=== PATIENT | female | born 1940 | race Caucasian/White ===

== ENCOUNTER 2020-04-23 07:24 | Inpatient (IN) | payer MEDICARE, MEDICAID, SELFPAY ==
[2020-04-23] VITALS (19 sets, daily range): BP systolic 138–215; BP diastolic 61–92; PULSE 63–84; RESP 11–20; TEMP 36.2–37; O2SAT 90–100; BMI 28.3
--- NOTE | 2020-04-23 | XR_ITS ---
WS: [id number] C-ARM RADIOGRAPHS LEFT HIP; 71 IMAGES HISTORY: OR PICS COMPARISON: Study earlier the same day. Intraoperative imaging during fixation of LEFT hip fracture with intramedullary rodding. Gamma neck s crew also placed. XR/XR hip LT 1V wo/w pel [id number] IMPRESSION: Intraoperative imaging during fixation LEFT hip fracture.
--- NOTE | 2020-04-23 | SCC_ITS ---
Procedure Done: Open reduction and internal fixation left hip with intramedullary device 57.3 seconds of fluoroscopic guidance, for a cumulative dose of 6.93 mGy, was provided to Dr. Garcia by the radiology department. C-arm images of the LEFT hip were saved for the patient's permanent record. [facility] SYSTEM[facility]ian[facility]
--- NOTE | 2020-04-23 07:46 | XR_ITS ---
WS: [id number] LEFT HIP HISTORY: fall / pain COMPARISON: None available. LEFT hip: There is an acute impacted fracture extending through the intertrochanteric region of the L EFT hip. Avulsion of the lesser trochanter. No significant anterior posterior displacement. Soft tiss ue bleeding and injury surrounding the hip fracture and osteopenia. XR/XR hip LT 2-3V wo/w pel* [id number] IMPRESSION: 1. Acute comminuted, impacted LEFT intertrochanteric hip fracture. 2. Osteopenia. 3. Avulsion of the lesser trochanter.
--- NOTE | 2020-04-23 08:04 | ED_ITS ---
HPI - Fall General: Chief Complaint: Fall Stated Complaint: FALL, LEFT HIP PAIN Time Seen by Provider: 04/23/20 07:25 History of Present Illness: HPI Narrative: 79-year-old female brought in by EMS after falling at home. She had several falls recently. EMS came out to the house to help her up she is partial weightbearing on the left hip. Pain is primarily in the left hip. She denies any other injuries she fell. She has had several falls recently she just feels she gets weak about an hour after she takes her medications. She denies any chest pain respiratory she has no recent GI or issues. States she does not really get dizzy when this happened just get weak and fall. complaint: fall Onset (ago): minute(s) Fall from: standing Fall witnessed: yes, by family Place fall occurred: home Loss of consciousness: None Prolonged down time: no Symptoms prior to fall: lightheadedness Context: history of frequent falls Severity: mild Associated symptoms-after fall: Reports no associated symptoms; Denies abdominal pain or chest pain Review of Systems Const: Denies: fever(s), chills, body aches, change in appetite, fatigue or malaise ENMT: Denies: throat pain, ear or mastoid pain, nasal discharge or nasal congestion Card: Denies: chest pain, edema, dyspnea on exertion or orthopnea Resp: Denies: dyspnea, productive cough or non-productive cough GI: Denies: abdominal pain, nausea, vomiting, hematemesis, coffee ground emesis, diarrhea, constipation, bloating, hematochezia or melena : Denies: flank pain, difficulty voiding, dysuria, urinary frequency or urinary urgency Skin/Breast: Denies: rash or pruritus PFSH ED PFSH: Medical History (Updated 04/23/20 @ 13:49 by Mauricio Contreras DO) Diabetes mellitus DJD (degenerative joint disease) Hyperlipidemia Hypertension Surgical History (Updated 04/23/20 @ 10:46 by Bentley Garcias MD) History of cataract surgery History of cholecystectomy Family History (Updated 04/23/20 @ 10:46 by Bentley Garcias MD) Other CAD (coronary artery disease) Social History (Updated 04/23/20 @ 10:47 by Bentley Garcias MD) Smoking and tobacco status: never smoked Alcohol intake: never Substance/Drug Use: never Physical Exam Const: COMMON NORMALS: no acute distress GENERAL APPEARANCE: cooperative and comfortable ORIENTATION/CONSCIOUSNESS: Yes awake, Yes oriented to person, Yes oriented to place and Yes oriented to time HENMT: COMMON NORMALS: normocephalic, atraumatic, hearing grossly normal bilaterally, external ears normal, EAC's normal, TM's normal bilaterally, Normal nasal mucous membranes and turbinates present, moist oral mucous membranes and oropharynx normal HEAD & SCALP: normocephalic and atraumatic NOSE: Normal nasal mucous membranes and turbinates present EXTERNAL EAR: Yes external ears normal EXTERNAL AUDITORY CANAL: EAC's normal TYMPANIC MEMBRANE: TM's n ormal bilaterally Eye: COMMON NORMALS: Equal, round and reactive pupils present, EOMs intact bilaterally, conjunctivae normal and no scleral icterus CONJUNCTIVA: Yes conjunctivae normal PUPIL: Yes Equal, round and reactive pupils present Neck/C-Spine: COMMON NORMALS: full ROM, no lymphadenopathy, supple and no JVD Lymph: LYMPHATIC: no lymphadenopathy noted and no lymphedema noted Resp: COMMON NORMALS: normal respiratory effort, No retractions, No use of accessory muscles and clear to auscultation bilaterally AUSCULTATION: clear to auscultation bilaterally Cardio: COMMON NORMALS: no JVD, regular rate, regular rhythm and No murmurs present (Cardio) RATE: regular rate RHYTHM: regular rhythm GI: COMMON NORMALS: Soft to palpation and No hepatosplenomegaly present AUSCULTATION: Yes normoactive bowel sounds PALPATION: Yes Soft to palpation, No Tenderness to palpation present (GI), No Guarding due to palpation present (GI) and Yes No hepatosplenomegaly present Extremity: COMMON NORMALS: normal to inspection, capillary refill normal, no clubbing, cyanosis or edema, no calf tenderness and no pedal edema Neuro: SENSORIUM/ORIENTATION: Yes oriented to person, Yes oriented to place and Yes oriented to time Skin: COMMON NORMALS: no rashes or lesions noted GENERAL SKIN EXAM: no rashes or lesions noted Course Vital Signs: Vital signs: Vital Signs Temperature 97.5 F L 04/23/20 07:24 Pulse Rate 70 04/23/20 10:37 Respiratory Rate 15 04/23/20 10:37 Blood Pressure 144/85 04/23/20 10:37 Pulse Oximetry 99 04/23/20 10:37 MDM - Fall MDM Narrative: Medical decision making narrative: Discussed with Dr. Garcia and Dr. Mendoza will admit for the hip fracture Dr. Mendoza to admit Dr. Garcia to consult. Lab Data: Labs: Lab Results 04/23/20 04/23/20 04/23/20 Range/Units 08:15 08:15 08:35 WBC 19.8 H (4.0-10.0) 10^3/ uL RBC 3.83 L (4.1-5.3) 10^6/u L Hgb 11.5 (11.5-15.3) g/dL Hct 36.7 L (37.0-47.0) % MCV 95.8 (81-99) fL MCH 30.0 (28.0-34.0) pg MCHC 31.3 (30.0-36.0) g/dL RDW 12.3 (12.1-15.1) % Plt Count 314 (130-400) 10^3/c mm MPV 9.0 (7.4-10.4) fL Neut % (Auto) 82.7 % Lymph % (Auto) 10.9 % [place] % (Auto) 4.6 % Eos % (Auto) 1.0 % Baso % (Auto) 0.4 % Neut # (Auto) 16.4 H (1.8-7.7) 10^3/u L Lymph # (Auto) 2.2 (0.8-4.8) 10^3/u L [place] # (Auto) 0.9 (0.2-0.9) 10^3/u L Eos # (Auto) 0.2 (0.0-0.8) 10^3/u L Baso # (Auto) 0.1 (0.0-0.1) 10^3/u L Nucleated RBC % (a uto) 0 % Nucleated RBCs # 0.0 /100WBC Sodium 139 (136-145) mmol/L Potassium 5.1 (3.5-5.1) mmol/L Chloride 106 (98-107) mmol/L Carbon Dioxide 22 (22-29) mmol/L Anion Gap 16.1 (5-19) BUN 28 H (8-23) mg/dL Creatinine 1.5 H (0.5-0.9) mg/dL Glucose 117 H (65-115) mg/dL Calculated Osmolal ity 286 (285-295) mOsm/k g Calcium 9.1 (8.5-10.5) mg/dL Total Bilirubin 0.3 (0.15-1.2) mg/dL AST 20 (0-32) U/L ALT 10 (0-33) U/L Alkaline Phosphata se 86 (35-105) IU/L Total Protein 6.9 (6.6-8.7) g/dL Albumin 3.6 (3.5-5.2) g/dL Globulin 3.3 (1.3-4.6) g/dL TSH 6.71 H (0.27-4.20) uIU/ mL Urine Color Yellow (Yellow) Urine Appearance Cloudy (CLEAR) Urine pH 6 (5-7) Ur Specific Gravit y 1.015 (1.005-1.030) Urine Protein Neg (Negative) Urine Glucose (UA) Norm (Normal) Urine Ketones Negative (Negative) Urine Blood 2+ H (Negative) Urine Nitrate Negative (Negative) Urine Bilirubin Neg (NEGATIVE) Urine Urobilinogen Norm (Negative) mg/dL Ur Leukocyte Thalia ase Negative (Negative) Urine RBC 5-10 H (0-2) /hpf Urine WBC 15-25 H (0-5) /hpf Ur Squamous Epith Cells None (0-5) Amorphous Sediment 2+ Urine Bacteria 2+ H (NONE) Discharge Plan Discharge Patient Disposition: Admitted As Inpatient Admit Provider: Bentley Garcias Clinical Impression: Hip fracture, Diabetes mellitus, UTI (urinary tract infection), Acute kidney injury, Fall, Hypertension Condition: Stable Interventions: ED Discharge Assessment Last Done: 04/23/20 10:37 ED Charges Last Done: 04/23/20 10:37 Discharge Date/Time: 04/23/20 10:38 Coding Level of Care Code ED Service Promoter Salesperson for Rong Fwd Exam Comprehensive
[2020-04-23 08:24] LABS: Basophils # 0.1 10^3/uL (0.0-0.1); Basophils % 0.4 %; Eosinophils # 0.2 10^3/uL (0.0-0.8); Hematocrit 36.7 % (37.0-47.0); Hemoglobin 11.5 g/dL (11.5-15.3); Lymphocytes # 2.2 10^3/uL (0.8-4.8); Lymphocytes % 10.9 %; Mean Corpuscular HGB Conc 31.3 g/dL (30.0-36.0); Mean Corpuscular Volume 95.8 fL (81-99); Monocytes # 0.9 10^3/uL (0.2-0.9); Monocytes % 4.6 %; Neutrophils # 16.4 10^3/uL (1.8-7.7); Neutrophils % 82.7 %; Nucleated Red Blood Cells % 0 %; Platelet Count 314 10^3/cmm (130-400); Red Blood Count 3.83 10^6/uL (4.1-5.3); Red Cell Distribution Width 12.3 % (12.1-15.1); White Blood Count 19.8 10^3/uL (4.0-10.0)
[2020-04-23 08:49] LABS: Alanine Aminotransferase 10 U/L (0-33); Albumin Level 3.6 g/dL (3.5-5.2); Alkaline Phosphatase 86 IU/L (35-105); Anion Gap 16.1 (5-19); Blood Urea Nitrogen 28 mg/dL (8-23); Calcium 9.1 mg/dL (8.5-10.5); Carbon Dioxide 22 mmol/L (22-29); Chloride 106 mmol/L (98-107); Globulin 3.3 g/dL (1.3-4.6); Glucose 117 mg/dL (65-115); Osmolality Calculated 286 mOsm/kg (285-295); Potassium 5.1 mmol/L (3.5-5.1); Sodium 139 mmol/L (136-145); Total Bilirubin 0.3 mg/dL (0.15-1.2); Total Protein 6.9 g/dL (6.6-8.7)
[2020-04-23 09:11] LABS: Aspartate Amino Transferase 20 U/L (0-32)
[2020-04-23 09:23] LABS: Add Urine Microscopic? YES; Bilirubin Urine Neg (NEGATIVE); Blood Urine 2+ (Negative); Glucose Urine UA Norm (Normal); Ketones Urine Negative (Negative); Leukocyte Esterase Urine Negative (Negative); Nitrate Urine Negative (Negative); Protein Urine Neg (Negative); Specific Gravity, Urine 1.015 (1.005-1.030); Urine Appearance Cloudy (CLEAR); Urine Color Yellow (Yellow); Urobilinogen Urine Norm (Negative); pH Urine 6 (5-7)
[2020-04-23 09:29] LABS: Add Urine Culture? Yes; Amorphous Sediment Urine 2+; Bacteria Urine 2+; WBC Urine 15-25 /hpf (0-5)
--- NOTE | 2020-04-23 09:31 | XR_ITS ---
WS: [id number] PORTABLE CHEST HISTORY: dyspnea/cough COMPARISON: None available. Lungs are clear and well expanded. No pleural effusion or pneumothorax. Cardiac size: Mildly enlarged cardiac silhouette. Mediastinum/Aorta: Mild atherosclerosis aorta. Osteopenia. XR/XR chest 1V portable [id number] IMPRESSION: Mild cardiomegaly and partially calcified aorta.
[2020-04-23] MEDS: ondansetron 2 mg/ML SDV 2 mL 4 MG IVP (09:54)
[2020-04-23] MEDS: cefTRIAXone 1,000 MG in sodium chloride 0.9% (plus) 50 ML 100 MG IV ×2 (09:54→22:20)
[2020-04-23] MEDS: morphine 4 mg/mL SDV 1 mL IVP (09:54)
--- NOTE | 2020-04-23 10:42 | P.HP_ITS ---
Providers/Chief Complaint Admitting Physician: Bentley Garcias MD Chief Complaint: FALL, LEFT HIP PAIN History of Present Illness Dorinda Mendoza is a 79 year old female who reports she has been falling quite a bit lately. She fell on her left hip, and came in with pain. She reports she does not pass out. She is not for sure why she falls but believes it is secondary to her severely poor site. She really does not have any dizziness. She did think she had some intermittent fevers lately. She has had some nausea after taking her medicines in the morning. No vomiting, cough, runny nose, exposure to COVID, chest discomfort. Denies any head injury or neck pain. Attempted to call patient's family for further history, but no answer. Patient sleepy during interview presumably secondary to pain medication. Review of Systems General: Reports: 10 or more systems reviewed and unremarkable except in HPI and below Const: Reports: fever(s), chills and malaise Eyes: Denies: change in vision ENMT: Denies: throat pain Card: Denies: chest pain Resp: Denies: dyspnea GI: Denies: abdominal pain : Denies: flank pain Musc: Denies: neck pain Skin/Breast: Denies: rash Neuro: Denies: headache(s) Psych: Denies: anxiety Endo: Denies: polyuria Matt/Lymph: Denies: easy bruising All/Imm: Denies: urticaria Medications/Allergies Home Medications Medication Instructions Recorded Confirmed Last Taken Type glimepiride 4 mg PO DAILY 04/23/20 04/23/20 04/22/20 History lisinopril-hydrochlorothiazide 1 tab PO DAILY 04/23/20 04/23/20 04/22/20 History naproxen 500 mg PO DAILY PRN 04/23/20 04/23/20 Unknown History pravastatin 40 mg PO DAILY 04/23/20 04/23/20 04/22/20 History tramadol 50 mg PO DAILY PRN 04/23/20 04/23/20 04/22/20 History Allergies Allergy/AdvReac Type Severity Reaction Status Date / Time No Known Allergies Allergy Unverified 04/23/20 09:46 PFSH Acute PFSH: Medical History (Updated 04/23/20 @ 10:52 by Bentley Garcias MD) Diabetes mellitus DJD (degenerative joint disease) Hyperlipidemia Hypertension Surgical History (Updated 04/23/20 @ 10:46 by Bentley Garcias MD) History of cataract surgery History of cholecystectomy Family History (Updated 04/23/20 @ 10:46 by Bentley Garcias MD) Other CAD (coronary artery disease) Social History (Updated 04/23/20 @ 10:47 by Bentley Garcias MD) Smoking and tobacco status: never smoked Alcohol intake: never Substance/Drug Use: never Vitals/I&O/Wt Last Vital Signs Temp 97.5 F L 04/23/20 07:24 Pulse 70 04/23/20 10:37 Resp 15 04/23/20 10:37 BP 144/85 04/23/20 10:37 Pulse Ox 99 04/23/20 10:37 Weight last 48 hrs Weight 72.699 kg Physical Exam Narrative: EXAM NARRATIVE: General exam is no apparent distress, conversant HEENT: Pupils equally round. Left eye with esotropia which the patient reports is chronic. Oropharynx clear. Neck is supple no lymphadenopathy or thyromegaly Cardiovascular regular rate and rhythm without murmur, no S3 or S4 Lungs clear no wheezing or crackles Abdomen is soft with positive bowel sounds. No obvious organomegaly was deferred Extremities no cyanosis clubbing or edema, cap refill brisk Skin no rash Neuro no obvious focal deficits Urinary Catheter Management^: Vasquez: Cath Placed During This Visit: no Reason for Continuing Indwelling Catheter: Other Data : 04/23/20 08:15 04/23/20 08:15 Other data: LFTs normal. Urine demonstrates 15-25 white blood cells consistent with UTI. Chest x-ray demonstrates cardiomegaly, no infiltrate Hip x-rays demonstrate left intertrochanteric fracture EKG has been ordered and is pending. A&P Assessment and plan (1) Hip fracture: N.p.o. Pain control Orthopedic consultation Status: Acute (2) Fall: Etiology unknown. Patient attributes this to poor vision. Telemetry Status: Acute (3) Acute kidney injury: Hydration Hold lisinopril and hydrochlorothiazide Status: Acute (4) UTI (urinary tract infection): Ceftriaxone IV Await urine culture Status: Acute (5) Hypertension: Initiate Norvasc Hydralazine PRN Status: Acute Additional A&P Information Diabetes mellitus type 2. Sliding scale insulin DJD Full code SCDs for DVT prophylaxis Anticoagulation with Lovenox or heparin following surgery Covid 19 testing has been ordered by the ER. Appropriate precautions to be taken until results known. Attestations Medical Necessity Statement*: Will need greater than 2 midnight stay for treatment of hip fracture Time Spent in Patient Care: Greater than 35 minutes Coding Level of Care Code Acute Orthopedic Physician Assistant for Chg Fwd Diagnoses Hip fracture S72.009A Fall W19.XXXA Acute kidney injury N17.9 UTI (urinary tract infection) N39.0 Hypertension I10
[2020-04-23 12:36] LABS: Thyroid Stimulating Hormone 6.71 uIU/mL (0.27-4.20)
[2020-04-23] MEDS: sodium chloride 0.9% 1,000 ML 75 ML IV (13:46)
--- NOTE | 2020-04-23 14:33 | PM.CONSULT ---
Providers/Reason For Consult Consulting Physican/Specialty*: Jamal Garcia MD/orthopedics Reason for Consult*: Left intertrochanteric hip fracture Attending Physician: Bentley Garcias MD History of Present Illness History of Present Illness Dorinda Mendoza is a 79 year old female who resides at home with her . She describes generalized weakness in her lower extremities and quite a few recent falls. She alleges today that her legs felt weak and gave out but neither. She fell on her left side with immediate pain. She denies any dizziness palpitations or loss of consciousness. She states she usually walks with a walker with a seat but rarely sits. He was transferred here by EMS for radiographs of revealed a left intratrochanteric hip fracture Review of Systems Const: Reports: fever(s), chills and malaise Card: Denies: chest pain, palpitations or dyspnea on exertion GI: Denies: abdominal pain, nausea or vomiting : Denies: flank pain Neuro: Reports: weakness in extremities; Denies: numbness in extremities Meds/Allergies Home Medications and Allergies Home Medications Medication Instructions Recorded Confirmed Last Taken Type glimepiride 4 mg PO DAILY 04/23/20 04/23/20 04/22/20 History lisinopril-hydrochlorothiazide 1 tab PO DAILY 04/23/20 04/23/20 04/22/20 History naproxen 500 mg PO DAILY PRN 04/23/20 04/23/20 Unknown History pravastatin 40 mg PO DAILY 04/23/20 04/23/20 04/22/20 History tramadol 50 mg PO DAILY PRN 04/23/20 04/23/20 04/22/20 History Allergies Allergy/AdvReac Type Severity Reaction Status Date / Time No Known Allergies Allergy Unverified 04/23/20 09:46 Current Medications Current Medications Generic Name Dose Route Start Last Admin Trade Name Freq PRN Reason Stop Dose Admin Sodium Chloride 1,000 mls @ 75 mls/hr 04/23/20 11:41 04/23/20 13:46 Sodium Chloride 0.9% IV 75 mls/hr .[id number] JAYASHREE Administration PFSH Acute PFSH: Medical History (Updated 04/23/20 @ 14:38 by Jamal Garcia MD) Diabetes mellitus DJD (degenerative joint disease) Hyperlipidemia Hypertension Surgical History (Updated 04/23/20 @ 10:46 by Bentley Garcias MD) History of cataract surgery History of cholecystectomy Family History (Updated 04/23/20 @ 10:46 by Bentley Garcias MD) Other CAD (coronary artery disease) Social History (Updated 04/23/20 @ 10:47 by Bentley Garcias MD) Smoking and tobacco status: never smoked Alcohol intake: never Substance/Drug Use: never Vitals/I&O/Wt Last Vital Signs Temp 97.5 F L 04/23/20 07:24 Pulse 70 04/23/20 14:02 Resp 15 04/23/20 10:37 BP 144/85 04/23/20 10:37 Pulse Ox 96 04/23/20 14:02 Weight last 48 hrs Weight 160 lb 4.383 oz Physical Exam Narrative: EXAM NARRATIVE: Patient is a elderly female supine in bed. She is oriented to person place and time. She answers questions appropriately. HEAD: Normocephalic/atraumatic. NECK: Soft supple nontender. HEART: Normal heart sounds, regular rhythm. CHEST: Clear to auscultation. ABDOMEN: Soft nontender nondistended. The patient's left lower extremity is not shortened externally rotated position. She has exquisite pain with motion the left hip. She has a palpable left dorsalis pedis pulse. Will flex extend her toes and her ankle without any motor deficits. Urinary Catheter Management^: Vasquez: Cath Placed During This Visit: no Reason for Continuing Indwelling Catheter: Other Data Micro: Micro: Microbiology 04/23/20 12:12 Blood Culture - Pr eliminary Blood SPECIMEN [facility] Imaging^: Xray Ortho: My impression: Radiographs the left hip are obtained. The patient has a left intratrochanteric hip fracture with release of free lesser trochanteric fragment. She has apparent osteopenia consistent with age. A&P Assessment and plan (1) Intertrochanteric fracture of left hip: I discussed options with the patient and her daughter. I told the patient we could treat this nonoperatively but certainly they would be at risk for medical problems without surgery. Theywould have problems with pain that would require narcotics for pain control. They would require a long period of bedrest sandwich peddler risk for pneumonia and skin breakdown. I discussed surgical intervention with the patient. I told them with open reduction internal fixation they should be able to be mobilized and resume ambulatory status. We can eliminate the problems associated with prolonged bed rest and would have better control of pain. Certainly there would be inherent risk with surgery. These would would include the risk of cardiac complications, stroke, infection, and even . I discussed risk of any orthopedic implant including nonunion, malunion, a component failure. I discussed the possible need for component removal. I discussed risk of deep venous thromboses and pulmonary emboli that are present with any treatment and the importance of DVT prophylaxis. The patient expressed good understanding of alternative treatments, seem to comprehend, and agrees to surgical intervention. Status: Acute Coding Level of Care Code Acute Party Plan Sales Director for Robbie Arriola Diagnoses Intertrochanteric fracture of left hip S72.142A
--- NOTE | 2020-04-23 16:01 | PC.NURSE ---
pt was taken to the or for surgery.
--- NOTE | 2020-04-23 16:09 | P.ANESASSM_ITS ---
Pre-Anesthetic Assessment Pre-Anesthetic Assessment: Height/Weight: Height 1.6 m Weight 72.699 kg Temp Pulse Resp BP Pulse Ox 97.5 F L 70 15 144/85 96 04/23/20 07:24 04/23/20 14:02 04/23/20 10:37 04/23/20 10:37 04/23/20 14:02 Preop Diagnosis: Left intertrochanteric hip fracture Proposed Procedure: Operation Date: 04/23/20 16:40 Proposed Procedures p Trochanteric Femoral Nail(Left) - Jamal Garcia MD Social: Social History: No alcohol and No tobacco Exam: Pre-Anes Outpt Exam: alert, oriented x 3, clear to auscultation bilaterally and regular rate & rhythm Airway: Submandibular: WNL Cervical ROM: WNL MP: 3 Dentition: Other ( very poor dentation, ) History/ROS: No significant history except as noted Pulmonary: Pulmonary: HERBERT CV/HEM: CV/HEM: HTN : : Chronic renal Insufficiency Hepatic: Hepatic: None reported GI: GI: None reported Metabolic: Metabolic: DM and Hyperlipidemia Musc/skel: Musc/skel: OA/DJD Neuropsych: Neuropsych: None reported Anesthetic Plan: ASA status: 3 Anesthesia: Anesthesia Evaluation and General Risk of > 500 ml blood loss (7ml/kg in children): No Meds/Allergies Current Medications: Current Medications Generic Name Dose Route Start Last Admin Trade Name Freq PRN Reason Stop Dose Admin Sodium Chloride 1,000 mls @ 75 ml s/hr 04/23/20 11:41 04/23/20 13:46 Sodium Chloride 0.9% IV 75 mls/hr .[id number] JAYASHREE Administration PFSH Anesthesia PFSH: Medical History Diabetes mellitus DJD (degenerative joint disease) Hyperlipidemia Hypertension Surgical History History of cataract surgery History of cholecystectomy Family History Other CAD (coronary artery disease) Social History Smoking and tobacco status: never smoked Alcohol intake: never Substance/Drug Use: never Data Anesthesia CBC & Chem 7: 04/23/20 08:15 04/23/20 08:15 Other Labs: Laboratory Results - last 48 hr 04/23/20 04/23/20 04/23/20 08:15 08:15 08:35 WBC 19.8 H RBC 3.83 L Hgb 11.5 Hct 36.7 L MCV 95.8 MCH 30.0 MCHC 31.3 RDW 12.3 Plt Count 314 MPV 9.0 Neut % (Auto) 82.7 Lymph % (Auto) 10.9 [place] % (Auto) 4.6 Eos % (Auto) 1.0 Baso % (Auto) 0.4 Neut # (Auto) 16.4 H Lymph # (Auto) 2.2 [place] # (Auto) 0.9 Eos # (Auto) 0.2 Baso # (Auto) 0.1 Nucleated RBC % (auto) 0 Nucleated RBCs # 0.0 Sodium 139 Potassium 5.1 Chloride 106 Carbon Dioxide 22 Anion Gap 16.1 BUN 28 H Creatinine 1.5 H Glucose 117 H Calculated Osmolality 286 Calcium 9.1 Total Bilirubin 0.3 AST 20 ALT 10 Alkaline Phosphatase 86 Total Protein 6.9 Albumin 3.6 Globulin 3.3 TSH 6.71 H Urine Color Yellow Urine Appearance Cloudy Urine pH 6 Ur Specific [place] 1.015 Urine Protein Neg Urine Glucose (UA) Norm Urine Ketones Negative Urine Blood 2+ H Urine Nitrate Negative Urine Bilirubin Neg Urine Urobilinogen Norm Ur Leukocyte Esterase Negative Urine RBC 5-10 H Urine WBC 15-25 H Ur Squamous Epith Cells None Amorphous Sediment 2+ Urine Bacteria 2+ H Micro: Microbiology 04/23/20 12:12 Blood Culture - Preliminary Blood SPECIMEN COLLECTED Cardiac Studies: No Data to Display
[2020-04-23] MEDS: fentaNYL 50 mcg/mL INJ 2mL IVP ×2 (16:52→19:46)
[2020-04-23 16:59] LABS: Glucose Point of Care 82 mg/dL (70-110)
[2020-04-23] MEDS: sodium chloride 0.9% 1,000 ML 30 ML IV (18:00)
[2020-04-23] MEDS: labetalol 5 mg/mL SDV 20mL IVP (19:35)
--- NOTE | 2020-04-23 19:44 | SUR.PHASEI ---
1931 PATIENT TO PACU. DRAINAGE CIRCLED ON LEFT HIP DRESSING, LEFT PEDAL PULSE, STRONG AND MARKED. PATIENT RESTING COMFORTABLE ON BED. SPO2 100% ON SIMPLE MASK AT 8L.
--- NOTE | 2020-04-23 19:47 | PM.OP ---
Operative Report Date of procedure: April 23, 2020 Pre-op Diagnosis: Left intertrochanteric hip fracture Post-op diagnosis: same Post-op Findings: Same Procedure Done: Open reduction and internal fixation left hip with intramedullary device Implants: Artesian gamma nail 11 x 360, 100 mm lag screw Pathology: none sent Surgeon: Jamal Garcia Anesthesia: General Estimated blood loss (mL): 100 Complications: None Findings: The patient had the previously described left intratrochanteric hip fracture consisting a head and neck shaft and lesser trochanter fragments. She had osteopenia consistent with age Condition: stable Disposition: PACU Procedure: The patient was taken to the operating room. He was given 1 g of Ancef. He was positioned on the fracture table with the right lower extremity in gentle traction. A timeout was performed. A 2 cm long incision was made proximal to the greater trochanter scalpel blade. Dissection was carried down to tip the greater trochanter. A guidepin was passed manually from the tip of the trochanter down the shaft. The proximal reamer was utilized to open up the proximal canal. An 11 mm 360 mm Jill gamma nail was passed down the canal without difficulty. Under visualization of fluoroscopy a guidepin was driven up into the head and neck at 120? angle. It was measured at 100 mm in length. A 100 mm lag screw was then placed and locked into place with the proximal locking pole. Intraoperative imaging was obtained verifying satisfactory position of the hardware and reduction of the fracture. Deep tissues were closed with 0 Vicryl as were subcutaneous tissues. The skin was closed with skin arti. Sterile dressings were applied. The patient was extubated and taken to recovery room in stable condition.
--- NOTE | 2020-04-23 20:11 | SUR.PHASEI ---
2002 PATIENT TO MED SURG. DENIES NAUSEA OR PAIN, TOLERATING ICE CHIPS. DRAINAGE TO LEFT HIP DRESSING CIRCLED. FIRST ICE IN PLACE.
[2020-04-23 22:46] LABS: Glucose Point of Care 144 mg/dL (70-110)
[2020-04-24] MEDS: sodium chloride 0.9% 1,000 ML 75 ML IV (00:29)
[2020-04-24 01:00] VITALS: BP 157/83; PULSE 78; RESP 15; TEMP 36.8; O2SAT 99
[2020-04-24 03:30] VITALS: BP 141/79; PULSE 95; RESP 17; TEMP 37.1; O2SAT 99
[2020-04-24 04:32] LABS: Basophils # 0.1 10^3/uL (0.0-0.1); Basophils % 0.3 %; Eosinophils % 0.1 %; Hematocrit 31.9 % (37.0-47.0); Hemoglobin 9.9 g/dL (11.5-15.3); Lymphocytes % 7.1 %; Mean Corpuscular Hemoglobin 30.3 pg (28.0-34.0); Mean Corpuscular Volume 97.6 fL (81-99); Mean Platelet Volume 9.1 fL (7.4-10.4); Monocytes # 0.7 10^3/uL (0.2-0.9); Monocytes % 5.1 %; Neutrophils # 12.5 10^3/uL (1.8-7.7); Neutrophils % 87.1 %; Nucleated Red Blood Cells % 0 %; Platelet Count 274 10^3/cmm (130-400); Red Blood Count 3.27 10^6/uL (4.1-5.3); Red Cell Distribution Width 12.6 % (12.1-15.1); White Blood Count 14.4 10^3/uL (4.0-10.0)
[2020-04-24 05:12] LABS: Alanine Aminotransferase 14 U/L (0-33); Albumin Level 3.2 g/dL (3.5-5.2); Alkaline Phosphatase 82 IU/L (35-105); Aspartate Amino Transferase 28 U/L (0-32); Blood Urea Nitrogen 28 mg/dL (8-23); Calcium 8.6 mg/dL (8.5-10.5); Carbon Dioxide 22 mmol/L (22-29); Chloride 106 mmol/L (98-107); Glucose 210 mg/dL (65-115); Osmolality Calculated 289 mOsm/kg (285-295); Sodium 138 mmol/L (136-145); Total Bilirubin 0.5 mg/dL (0.15-1.2); Total Protein 6.2 g/dL (6.6-8.7)
[2020-04-24 07:13] VITALS: BP 111/77; PULSE 84; RESP 18; TEMP 36.6; O2SAT 99
[2020-04-24 07:42] LABS: Glucose Point of Care 217 mg/dL (70-110)
[2020-04-24 08:12] LABS: Coronavirus Lab Test PTC NOT DETECTED
[2020-04-24] MEDS: acetaminophen 325 mg Tablet 650 MG PO (08:27)
[2020-04-24] MEDS: amlodipine 5 mg Tablet PO (08:27)
[2020-04-24] MEDS: atorvastatin 40 mg Tablet 20 MG PO (08:27)
[2020-04-24] MEDS: enoxaparin 40 mg/0.4 mL Syringe SUBCUT (08:28)
[2020-04-24] MEDS: hydroCHLOROthiazide 25 mg Tablet PO (08:28)
[2020-04-24] MEDS: lisinopril 20 mg Tablet PO (08:28)
[2020-04-24 10:43] VITALS: BP 142/88; PULSE 74; RESP 18; TEMP 36.7; O2SAT 99
[2020-04-24 11:02] LABS: Glucose Point of Care 282 mg/dL (70-110)
--- NOTE | 2020-04-24 11:47 | PC.CHAP ---
Pastoral Care Encounter/Spiritual Assessment Type of Contact [] Declined senior service technician visit [] Patient/Family/Request visit [] Outpatient visit [] Follow-up visit [] Physician referral [] Code/Alert [x] Routine visit [] Staff referral [] Actively dying [] Patient sleeping [] Family support [] [] Out of room [] Palliative care [] [x] Receiving care in room [] Pre-surgical visit [] Trauma [] Long length of stay [] ICU visit [] Other: Relational/Emotional Strength [x] Patient feels connected with others/family/visitors/staff [] Distress [] Loneliness/isolation [] Abandonment Spirituality of Patient [x] Person of Camille [] Attends Yazidi of their Camille [x] Believes in Prayer [] Reads Bible or Mandaeism materials [] There are Spiritual issues to be addressed Seo Executive Interventions [x] Prayer [x] Active listening [x] Non-anxious presence [x] Spiritual/emotional support [] Crisis/trauma care [x] Spiritual counseling [] Bereavement support [] Provided bereavement packet [] Provided Bible/devotional materials [] Provided toy/stuffed animal, coloring book to patient or family member [] Provided Communion [] Anointing/[place] [] Salvation [x] Completed spiritual assessment [] Other: Impact on Illness or Injury [] Angry [] Fearful [] Anxious [] Often cries [] Exhaustion [] Unable to work [] Unable to attend religion [] Unable to walk/stand [] Unable to read [] Unable to drive [] Unable to eat/drink [] Unable to sleep [] Unable to be with family [] Patient intubated [] Other: Summary Surgery on hip, will need [facility] recovery time, feels good has a good attitude, gets to go home tomorrow Time spent with patient 10 mins
--- NOTE | 2020-04-24 13:00 | PM.PN ---
Subjective Subjective: Interval history: Dorinda reports she is doing okay. Therapy reported she was having some trouble transferring and could benefit from skilled care. Medications: Reviewed: Yes Vitals/I&O/Wt Last Vital Signs Temp 98.0 F 04/24/20 10:43 Pulse 74 04/24/20 10:43 Resp 18 04/24/20 10:43 BP 142/88 04/24/20 10:43 Pulse Ox 99 04/24/20 10:43 04/23/20 04/24/20 04/24/20 22:59 06:59 14:59 Intake Total 98.333 / 98.333 803.75 / 902.083 240 / 240 Output Total 100 / 100 400 / 500 Balance -1.667 / -1.667 403.75 / 402.083 240 / 240 Weight last 48 hrs Weight 72.699 kg Physical Exam Narrative: EXAM NARRATIVE: General exam is no apparent distress Cardiovascular regular rate and rhythm without murmur, no S3 or S4 Lungs clear no wheezing or crackles Abdomen is soft with positive bowel sounds. No obvious organomegaly Extremities no cyanosis clubbing or edema, cap refill brisk. Left hip incision site clean Urinary Catheter Management^: Vasquez: Cath Placed During This Visit: no Reason for Continuing Indwelling Catheter: Acute Urinary Retention or Obstruction Data : 04/24/20 04:01 04/24/20 04:01 Micro: Microbiology 04/23/20 12:12 Blood Culture - Preliminary Blood NEGATIVE TO DATE A&P Assessment and plan (1) Hip fracture: Postoperative day #1 status post ORIF Continue rehabilitation Likely will need [facility] facility placement Status: Acute (2) Fall: Etiology unknown. Patient attributes this to poor vision. No concerns noted on telemetry Status: Acute (3) Acute kidney injury: Hydration. Reduce fluids slightly Hold lisinopril and hydrochlorothiazide Status: Acute (4) UTI (urinary tract infection): Continue ceftriaxone Await urine culture Status: Acute (5) Hypertension: Continue Norvasc Hydralazine PRN Status: Acute Additional A&P Information Mild acute blood loss anemia postoperative Diabetes mellitus type 2. Sliding scale insulin DJD Full code Lovenox for DVT prophylaxis COVID testing was negative Attestations Medical Necessity Statement*: Needs continued hospital stay for close monitoring following ORIF left hip Coding Level of Care Code Acute Regional Airline Pilot for Chg Fwd Diagnoses Hip fracture S72.009A Fall W19.XXXA Acute kidney injury N17.9 UTI (urinary tract infection) N39.0 Hypertension I10
[2020-04-24 15:22] VITALS: BP 150/77; RESP 18; TEMP 36.6; O2SAT 93
[2020-04-24 16:53] LABS: Glucose Point of Care 303 mg/dL (70-110)
--- NOTE | 2020-04-24 17:51 | P.PN_ITS ---
Subjective Subjective: Interval history: Patient up in chair this morning. Vasquez catheter discontinued. Pain better. Tolerating some p.o. liquids Vitals/I&O/Wt Last Vital Signs Temp 97.8 F 04/24/20 15:22 Pulse 74 04/24/20 10:43 Resp 18 04/24/20 15:22 BP 150/77 04/24/20 15:22 Pulse Ox 93 04/24/20 15:22 04/24/20 04/24/20 04/24/20 06:59 14:59 22:59 Intake Total 803.75 / 902.083 480 / 480 Output Total 400 / 500 Balance 403.75 / 402.083 480 / 480 Weight last 48 hrs Weight 160 lb 4.383 oz Physical Exam Narrative: EXAM NARRATIVE: Left hip dressing clean and dry. Minimal swelling Urinary Catheter Management^: Vasquez: Cath Placed During This Visit: no Reason for Continuing Indwelling Catheter: Acute Urinary Retention or Obstruction Data : 04/24/20 04:01 04/24/20 04:01 Micro: Microbiology 04/23/20 08:35 Urine Culture - Preliminary Urine,Clean Catch Gram Negative Rods 04/23/20 12:12 Blood Culture - Preliminary Blood NEGATIVE TO DATE A&P Assessment and plan (1) Postoperative state: Patient will continue to be mobilized with therapy. Will likely need [facility] transfer Status: Acute Attestations Medical Necessity Statement*: As per medicine. Okay for transfer to [facility] per Ortho Coding Level of Care Code Acute Sole Seamer for Robbie Arriola Diagnoses Postoperative state Z98.890
[2020-04-24 20:23] VITALS: BP 147/73; PULSE 76; RESP 20; TEMP 36.8; O2SAT 99
[2020-04-24 21:17] LABS: Glucose Point of Care 245 mg/dL (70-110)
[2020-04-25] VITALS (10 sets, daily range): BP systolic 150–169; BP diastolic 72–77; PULSE 66–101; RESP 12–18; TEMP 36.4–37.1; O2SAT 96–100
[2020-04-25] MEDS: sodium chloride 0.9% 1,000 ML 75 ML IV ×2 (00:08→18:36)
[2020-04-25] MEDS: cefTRIAXone 1,000 MG in sodium chloride 0.9% (plus) 50 ML 100 MG IV ×3 (00:08→22:31)
[2020-04-25 05:22] LABS: Basophils # 0.1 10^3/uL (0.0-0.1); Basophils % 0.4 %; Eosinophils # 0.3 10^3/uL (0.0-0.8); Eosinophils % 2.1 %; Hemoglobin 8.5 g/dL (11.5-15.3); Lymphocytes # 2.1 10^3/uL (0.8-4.8); Lymphocytes % 17.2 %; Mean Corpuscular HGB Conc 31.5 g/dL (30.0-36.0); Mean Corpuscular Hemoglobin 30.5 pg (28.0-34.0); Mean Corpuscular Volume 96.8 fL (81-99); Mean Platelet Volume 9.3 fL (7.4-10.4); Monocytes # 0.7 10^3/uL (0.2-0.9); Monocytes % 5.7 %; Neutrophils # 9.2 10^3/uL (1.8-7.7); Neutrophils % 74.4 %; Nucleated Red Blood Cells % 0 %; Platelet Count 250 10^3/cmm (130-400); Red Blood Count 2.79 10^6/uL (4.1-5.3); Red Cell Distribution Width 12.4 % (12.1-15.1); White Blood Count 12.4 10^3/uL (4.0-10.0)
[2020-04-25 05:58] LABS: Anion Gap 14.1 (5-19); Blood Urea Nitrogen 35 mg/dL (8-23); Calcium 8.6 mg/dL (8.5-10.5); Carbon Dioxide 21 mmol/L (22-29); Chloride 107 mmol/L (98-107); Glucose 133 mg/dL (65-115); Osmolality Calculated 285 mOsm/kg (285-295); Potassium 4.1 mmol/L (3.5-5.1); Sodium 138 mmol/L (136-145)
[2020-04-25 06:39] LABS: Glucose Point of Care 129 mg/dL (70-110)
[2020-04-25] MEDS: atorvastatin 40 mg Tablet 20 MG PO (09:47)
[2020-04-25] MEDS: enoxaparin 40 mg/0.4 mL Syringe SUBCUT (09:47)
[2020-04-25] MEDS: amlodipine 5 mg Tablet PO (09:48)
--- NOTE | 2020-04-25 11:24 | PM.PN ---
Subjective Subjective: Interval history: Dorinda reports she is in some discomfort but otherwise doing okay after the operation. She realizes that she will need to go to skilled care. Medications: Reviewed: Yes Vitals/I&O/Wt Last Vital Signs Temp 97.6 F 04/25/20 11:09 Pulse 81 04/25/20 11:09 Resp 18 04/25/20 11:09 BP 159/77 04/25/20 11:09 Pulse Ox 98 04/25/20 11:09 04/24/20 04/25/20 04/25/20 22:59 06:59 14:59 Intake Total 120 / 1600 50 / 1650 240 / 240 Balance 120 / 1600 50 / 1650 240 / 240 Physical Exam Narrative: EXAM NARRATIVE: General exam is no apparent distress Cardiovascular regular rate and rhythm without murmur, no S3 or S4 Lungs clear no wheezing or crackles Abdomen is soft with positive bowel sounds. No obvious organomegaly Extremities no cyanosis clubbing or edema, cap refill brisk. Left hip incision site clean Urinary Catheter Management^: Vasquez: Cath Placed During This Visit: no Reason for Continuing Indwelling Catheter: Acute Urinary Retention or Obstruction Data : 04/25/20 05:06 04/25/20 05:06 Micro: Microbiology 04/23/20 08:35 Urine Culture - Preliminary Urine,Clean Catch Gram Negative Rods 04/23/20 12:12 Blood Culture - Preliminary Blood NEGATIVE TO DATE A&P Assessment and plan (1) Hip fracture: Postoperative day #2 status post ORIF Continue rehabilitation She is progressing. She will be placed in skilled care or swing bed at discharge likely tomorrow. Status: Acute (2) Fall: Etiology unknown. Patient attributes this to poor vision. No concerns noted on telemetry Status: Acute (3) Acute kidney injury: Continue hydration. Continue Vasquez. Hopefully creatinine will have improved by tomorrow. Hold lisinopril and hydrochlorothiazide Status: Acute (4) UTI (urinary tract infection): Continue ceftriaxone Await urine culture. Growing gram-negative rods. Status: Acute (5) Hypertension: Continue Norvasc Hydralazine PRN Status: Acute Additional A&P Information Acute blood loss anemia postoperative. No need for transfusion at this time Diabetes mellitus type 2. Sliding scale insulin DJD Full code Lovenox for DVT prophylaxis COVID testing was negative Attestations Medical Necessity Statement*: Needs continued hospitalization for close monitoring status post hip fracture repair. Coding Level of Care Code Acute Broadcast Meteorologist for g Fwd Diagnoses Hip fracture S72.009A Fall W19.XXXA Acute kidney injury N17.9 UTI (urinary tract infection) N39.0 Hypertension I10
[2020-04-25 11:43] LABS: Glucose Point of Care 287 mg/dL (70-110)
[2020-04-25 17:21] LABS: Glucose Point of Care 282 mg/dL (70-110)
--- NOTE | 2020-04-25 19:33 | PM.PN ---
Subjective Subjective: Interval history: Pain adequately controlled. Slow progress with therapy. Tolerating p.o. diet. Vitals/I&O/Wt Last Vital Signs Temp 97.7 F 04/25/20 15:13 Pulse 71 04/25/20 15:52 Resp 18 04/25/20 15:13 BP 162/76 04/25/20 15:13 Pulse Ox 96 04/25/20 15:52 04/25/20 04/25/20 04/25/20 06:59 14:59 22:59 Intake Total 50 / 1650 1480 / 1480 Output Total 550 / 550 Balance 50 / 1650 1480 / 1480 -550 / 930 Physical Exam Narrative: EXAM NARRATIVE: Left hip dressings clean and dry. Urinary Catheter Management^: Vasquez: Cath Placed During This Visit: no Reason for Continuing Indwelling Catheter: Acute Urinary Retention or Obstruction Data : 04/25/20 05:06 04/25/20 05:06 Micro: Microbiology 04/23/20 08:35 Urine Culture - Final Urine,Clean Catch Klebsiella pneumoniae Escherichia coli A&P Assessment and plan (1) Postoperative state: Status: Acute Additional A&P Information Patient doing well post surgery. Will need long term transfer. Okay for discharge per Ortho. Managed with Lovenox in long term for 10 days. May weight-bear as tolerated., [place] to be discontinued in senior care at 2 weeks. We will follow-up with me in 1 month. Attestations Medical Necessity Statement*: As per medicine Coding Level of Care Code Acute Eating Disorder Psychologist for Robbie Arriola Diagnoses Postoperative state Z98.890
[2020-04-25 21:12] LABS: Glucose Point of Care 243 mg/dL (70-110)
[2020-04-26 04:00] VITALS: BP 144/82; PULSE 92; RESP 14; TEMP 36.6; O2SAT 99
[2020-04-26 05:25] LABS: Basophils # 0.1 10^3/uL (0.0-0.1); Basophils % 0.5 %; Eosinophils # 0.4 10^3/uL (0.0-0.8); Hematocrit 24.3 % (37.0-47.0); Hemoglobin 7.8 g/dL (11.5-15.3); Lymphocytes # 1.8 10^3/uL (0.8-4.8); Lymphocytes % 14.9 %; Mean Corpuscular HGB Conc 32.1 g/dL (30.0-36.0); Mean Corpuscular Hemoglobin 31.1 pg (28.0-34.0); Mean Corpuscular Volume 96.8 fL (81-99); Mean Platelet Volume 9.7 fL (7.4-10.4); Monocytes # 0.7 10^3/uL (0.2-0.9); Monocytes % 5.7 %; Neutrophils # 8.84 10^3/uL (1.8-7.7); Neutrophils % 75.5 %; Nucleated Red Blood Cells % 0 %; Platelet Count 253 10^3/cmm (130-400); Red Blood Count 2.51 10^6/uL (4.1-5.3); Red Cell Distribution Width 12.5 % (12.1-15.1); White Blood Count 11.7 10^3/uL (4.0-10.0)
[2020-04-26 05:37] LABS: Anion Gap 13.6 (5-19); Blood Urea Nitrogen 37 mg/dL (8-23); Calcium 8.6 mg/dL (8.5-10.5); Carbon Dioxide 22 mmol/L (22-29); Chloride 106 mmol/L (98-107); Glucose 176 mg/dL (65-115); Osmolality Calculated 286 mOsm/kg (285-295); Potassium 4.6 mmol/L (3.5-5.1); Sodium 137 mmol/L (136-145)
[2020-04-26 06:36] LABS: Glucose Point of Care 160 mg/dL (70-110)
[2020-04-26 07:52] VITALS: BP 193/77; PULSE 90; RESP 17; TEMP 36.7; O2SAT 98
--- NOTE | 2020-04-26 09:06 | PM.PN ---
Subjective Subjective: Interval history: Patient up in chair receiving tube feeds. Pain tolerable. Slower progress with therapy Vitals/I&O/Wt Last Vital Signs Temp 98.0 F 04/26/20 07:52 Pulse 90 04/26/20 07:52 Resp 17 04/26/20 07:52 BP 193/77 04/26/20 07:52 Pulse Ox 98 04/26/20 07:52 04/25/20 04/26/20 04/26/20 22:59 06:59 14:59 Intake Total 450 / 1979 360 / 360 Output Total 550 / 550 925 / 1475 Balance -100 / 1430 -925 / 505 360 / 360 Physical Exam Narrative: EXAM NARRATIVE: Right hip dressing clean and dry Urinary Catheter Management^: Vasquez: Cath Placed During This Visit: no Reason for Continuing Indwelling Catheter: Perioperative Use in Selected Surgeries Data : 04/26/20 04:33 04/26/20 04:33 Micro: Microbiology 04/23/20 08:35 Urine Culture - Final Urine,Clean Catch Klebsiella pneumoniae Escherichia coli A&P Assessment and plan (1) Postoperative state: Continue to mobilize with therapy. Okay for discharge per Ortho. Will be weightbearing as tolerated. Status: Acute Attestations Medical Necessity Statement*: As per medicine Coding Level of Care Code Acute Licensed Home Inspector for Robbie Arriola Diagnoses Postoperative state Z98.890
--- NOTE | 2020-04-26 09:10 | P.PN_ITS ---
Subjective Subjective: Interval history: Patient up in chair eating. States pain is better. Expecting discharge to retirement today Vitals/I&O/Wt Last Vital Signs Temp 98.0 F 04/26/20 07:52 Pulse 90 04/26/20 07:52 Resp 17 04/26/20 07:52 BP 193/77 04/26/20 07:52 Pulse Ox 98 04/26/20 07:52 04/25/20 04/26/20 04/26/20 22:59 06:59 14:59 Intake Total / 1979 360 / 360 Output Total 550 / 550 925 / 1475 Balance -100 / 1430 -925 / 505 360 / 360 Physical Exam Narrative: EXAM NARRATIVE: Left hip dressing clean and dry Urinary Catheter Management^: Vasquez: Cath Placed During This Visit: no Reason for Continuing Indwelling Catheter: Perioperative Use in Selected Surgeries Data : 04/26/20 04:33 04/26/20 04:33 Micro: Microbiology 04/23/20 08:35 Urine Culture - Final Urine,Clean Catch Klebsiella pneumoniae Escherichia coli A&P Assessment and plan (1) Postoperative state: Patient doing well but slow progress with therapy. Will need retirement. Expecting discharge today. Status: Acute (2) Anemia, blood loss: Patient with preoperative low hemoglobin decrease further after surgery. Will defer to medicine decisions regarding transfusion. Appears hemodynamically stable at present. Status: Acute Attestations Medical Necessity Statement*: As per medicine Coding Level of Care Code Acute Engineering Lecturer for Robbie Arriola Diagnoses Postoperative state Z98.890 Anemia, blood loss D50.0
--- NOTE | 2020-04-26 09:15 | PC.SOCIAL ---
IMM Page 2 of IMM explained to patient. Initialed, dated, and timed and placed in chart. Copy provided to patient.
[2020-04-26] MEDS: atorvastatin 40 mg Tablet 20 MG PO (09:32)
[2020-04-26] MEDS: cefTRIAXone 1,000 MG in sodium chloride 0.9% (plus) 50 ML 100 MG IV (09:32)
[2020-04-26] MEDS: amlodipine 5 mg Tablet PO (09:32)
[2020-04-26] MEDS: enoxaparin 40 mg/0.4 mL Syringe SUBCUT (09:33)
--- NOTE | 2020-04-26 09:52 | P.DS_ITS ---
Discharge Providers Date of Admission: 04/23/20 09:36 Date of Discharge: April 26, 2020 Attending Provider at Admission: Bentley Garcias MD Attending Provider at Discharge: Bentley Garcias MD Diagnoses at Discharge Discharge Diagnosis (1) Postoperative state: Status: Acute Problem details: Doing well. Discharged today. (2) Anemia, blood loss: Status: Acute Problem details: Hemoglobin 7.8, no evidence of active bleeding. No symptoms. Reason for Visit Reason for Visit: FALL, LEFT HIP PAIN Hospital Course Hospital Course: Dorinda is a 79-year-old white female who presented to the hospital after a fall and sustained a left intertrochanteric fracture. Surgery was consulted. She received ORIF of the left hip on April 23. Following surgery she did well. There was some rise in creatinine, but this came down with hydration. Hemoglobin did drop consistent with acute postoperative blood loss anemia. Last hemoglobin was 7.8 and she was asymptomatic with no evidence of active bleeding. It was thought she could transition to the nursing facility, and have this repeated with a CBC in 3 days. Physical Exam Narrative: EXAM NARRATIVE: General exam no apparent distress Cardiovascular regular in rhythm without murmur Lungs clear Abdomen is soft with positive bowel sounds Extremities no sinus clubbing or edema, left hip incision site clean and dry. No significant hematoma. Urinary Catheter Management^: Vasquez: Cath Placed During This Visit: no Reason for Continuing Indwelling Catheter: Perioperative Use in Selected Surgeries Discharge Data Data Completed and Pending: Completed Studies During Hospitalization Category Date Time Status XR chest 1V norbert ble [id number] Stat Exams 04/23/20 09:31 Completed XR hip LT 1V wo/[place] pel [id number] Routine Exams 04/23/20 Completed XR hip LT 2-3V wo /w pel* [id number] Stat Exams 04/23/20 07:46 Completed Pending at discharge Category Date Time Status Blood Culture Sta t Lab 04/23/20 12:12 Ordered Labs from last 24 hours 04/26/20 04/26/20 04/26/20 06:18 04:33 04:33 WBC 11.7 H RBC 2.51 L Hgb 7.8 L Hct 24.3 L MCV 96.8 MCH 31.1 MCHC 32.1 RDW 12.5 Plt Count 253 MPV 9.7 Neut % (Auto) 75.5 Lymph % (Auto) 14.9 Hayes % (Auto) 5.7 Eos % (Auto) 3.0 Baso % (Auto) 0.5 Neut # (Auto) 8.84 H Lymph # (Auto) 1.8 Hayes # (Auto) 0.7 Eos # (Auto) 0.4 Baso # (Auto) 0.1 Nucleated RBC % (a uto) 0 Nucleated RBCs # 0.0 Sodium 137 Potassium 4.6 Chloride 106 Carbon Dioxide 22 Anion Gap 13.6 BUN 37 H Creatinine 1.7 H Glucose 176 H POC Glucose 160 Calculated Osmolal ity 286 Calcium 8.6 04/25/20 04/25/20 04/25/20 20:53 17:15 11:07 WBC RBC Hgb Hct MCV MCH MCHC RDW Plt Count MPV Neut % (Auto) Lymph % (Auto) Hayes % (Auto) Eos % (Auto) Baso % (Auto) Neut # (Auto) Lymph # (Auto) Hayes # (Auto) Eos # (Auto) Baso # (Auto) Nucleated RBC % (a uto) Nucleated RBCs # Sodium Potassium Chloride Carbon Dioxide Anion Gap BUN Creatinine Glucose POC Glucose 243 282 287 Calculated Osmolal ity Calcium Vitals: Last Vital Signs Temp 98.0 F 04/26/20 07:52 Pulse 90 04/26/20 07:52 Resp 17 04/26/20 07:52 BP 193/77 04/26/20 07:52 Pulse Ox 98 04/26/20 07:52 Discharge Plan Discharge Patient Disposition: Home, Self-Care Condition: Stable Prescriptions: New hydrocodone-acetaminophen 5-325 mg Tablet 1 - 2 tab PO Q4H PRN (Reason: Breakthrough Pain) Qty: 30 RF: 0 enoxaparin [Lovenox] 30 mg/0.3 mL Syringe 40 mg SUBCUT Q24H Qty: 4 RF: 0 amlodipine [Norvasc] 10 mg tablet 10 mg PO DAILY Qty: 30 RF: 0 cefuroxime axetil 500 mg tablet 500 mg PO BID 7 Days Qty: 14 RF: 0 Continued pravastatin 40 mg tablet 40 mg PO DAILY RF: 0 tramadol 50 mg tablet 50 mg PO DAILY PRN (Reason: Pain) RF: 0 glimepiride 4 mg tablet 4 mg PO DAILY RF: 0 Discontinued lisinopril-hydrochlorothiazide 20-25 mg tablet 1 tab PO DAILY RF: 0 naproxen 500 mg tablet 500 mg PO DAILY PRN (Reason: Pain) RF: 0 Discharge Orders: Discharge Order (Routine); Ordered 04/26/20 Ordered By: Bentley Garcias Referrals: Jamal Garcia MD [Physician] - 1 month Discharge Diet: Diabetic Discharge Activity: Increase activity as tolerated and Limit activity as instructed Activity Restrictions/Additional Instructions: [facility] to discontinue arti left hip on 05/07/2020 May weight-bear as tolerated left lower extremity Follow-up with physician at swing bed within the next several days. CBC, BMP in 3 days. Discharge Attestations Time Spent in Discharge Care*: greater than 30 min Quality Metrics Clinical Quality Measures During this hospital stay, did patient experience: None Coding Level of Care Code Acute Microcomputer Support Specialist for Robbie Fwd Diagnoses Postoperative state Z98.890 Anemia, blood loss D50.0
[2020-04-26 11:04] VITALS: BP 193/77; PULSE 90; RESP 17; TEMP 36.7; O2SAT 98
[2020-04-26 11:06] LABS: Glucose Point of Care 292 mg/dL (70-110)
[2020-04-26 11:35] VITALS: BP 165/71; PULSE 91; RESP 16; TEMP 36.8; O2SAT 98
--- NOTE | 2020-04-26 12:42 | PC.NURSE ---
lozoya discontinued at 1215, 9mL removed from balloon. pt tolerated well.
[2020-04-26 13:37] VITALS: PULSE 93; O2SAT 99
== END 2020-04-26 14:53 | disposition home or self-care (01) | DRG 481 ==
LOC: ER 08:04 → MEDSURG 10:16
PROVIDERS: Family Medicine; Orthopaedic Surgery; Admitting Provider Internal Medicine; Visit Provider Internal Medicine
PROC: 0SSB04Z Reposition Left Hip Joint with Internal Fixation Device, Open Approach (ICD-10-PCS; CPT 27245; principal; 2020-04-23 16:40)
DX: S72.142A Displaced intertrochanteric fracture of left femur, initial encounter for closed fracture (principal); N39.0 Urinary tract infection, site not specified; N17.9 Acute kidney failure, unspecified; D62 Acute posthemorrhagic anemia; W19.XXXA Unspecified fall, initial encounter; I10 Essential (primary) hypertension; E11.9 Type 2 diabetes mellitus without complications; E78.5 Hyperlipidemia, unspecified; Y92.009 Unspecified place in unspecified non-institutional (private) residence as the place of occurrence of the external cause
CPT/HCPCS: 12345; 36415; 36416; 51702; 71045; 73501; 73502; 76000; 80048; 80053; 81001; 81003; 82962; 84443; 85025; 87040; 87077; 87086; 87186; 87635; 96365; 96372; 96375; 97110; 97161; 97166; 97530; 97535; 99283; C1713; C1776; J0330; J0690; J0696; J1650; J1815; J2001; J2270; J2405; J2704; J3010; J3490; J7030